=== PATIENT | female | born 1945 | race Caucasian/White ===

== ENCOUNTER 2019-03-08 12:24 | Inpatient (IN) | payer OTHER ==
[~2019-03-08] VITALS: Ht 167.6 cm; Wt 73.6 kg
--- NOTE | ~2019-03-08 | HC ---
[facility] [place] [address] CONSULTATION Name: ADALBERTO MIRANDA Room #: 212-P [facility] IN ..#: [id number] Admission: 03/08/19 ������������������ Attend Phys: Phoenix Tejeda MD Discharge: ������������������ Date of : 43 Report #: [id number] THIS REPORT FOR: //name// CC: Phoenix Viera HISTORY OF PRESENT ILLNESS: The patient is a 73-year-old woman with a history of coronary artery disease with remote 4-vessel bypass (2010). This was with a left internal mammary to the LAD, sequential vein graft to the diagonal, marginal branches and a vein graft to the distal right coronary. She has had chest pain ever since her bypass. Her last intervention was in 10/2014 when coronary angiography demonstrated an atretic, occluded HOWARD to the LAD and patent vein grafts. She underwent stenting of the mid LAD with a 2.75 x 33 mm Xience stent. She continued to have pain postprocedure and uses nitroglycerin periodically. Yesterday around 11:00, she developed epigastric pain. She ended up taking three nitroglycerin tablets and Xanax. Paramedics were summoned and her pain persisted shortly after their arrival. EKGs in the field demonstrated no acute ST or T-wave changes. Follow up EKG upon arrival here similarly demonstrated sinus rhythm with right bundle branch block without acute ST or T-wave changes. Serial cardiac enzymes have been normal. She has had no recurrent pain since. She continues to smoke about a package and a half of cigarettes a day. No orthopnea or paroxysmal nocturnal dyspnea. No history of near syncope or syncope. ALLERGIES: She is allergic to IODINATED CONTRAST, WELLBUTRIN AND BEE STINGS. MEDICATIONS: Include metoprolol ER 100 mg daily, atorvastatin 40 mg daily, Plavix 75 mg daily, irbesartan 300 mg daily and chlorthalidone 25 mg 4 times a week. PAST MEDICAL HISTORY: Medical records have been reviewed and include a history of cervical spine surgery, hysterectomy, appendectomy, cholecystectomy and four-vessel bypass in 2010. SOCIAL HISTORY: She is an ongoing smoker, single and retired. FAMILY HISTORY: Notable for premature coronary artery disease. REVIEW OF SYSTEMS: All systems negative except as that noted above. PHYSICAL EXAMINATION: GENERAL: This is a pleasant woman in no distress. VITAL SIGNS: Blood pressure is 137/80, heart rate of 60 and regular. She is afebrile, 5 feet 6 inches tall and 165 pounds. HEENT: There are neither xanthelasma, subcutaneous xanthomata, oral mucosal or digital cyanosis or kyphoscoliosis present. [facility] [address] [place] [address] CONSULTATION Name: ADALBERTO MIRANDA Room #: 212-P [facility] IN ..#: [id number] Admission: 03/08/19 ������������������ Attend Phys: Phoenix Tejeda MD Discharge: ������������������ Date of : 43 Report #: [id number] CHEST: Clear to auscultation and percussion. CARDIAC: Regular rate and rhythm with normal S1, S2. No murmurs or rubs. ABDOMEN: Soft and nontender. EXTREMITIES: Without cyanosis, clubbing or edema. Radial pulses are 2+. NEUROLOGIC: She is alert with a nonfocal exam. LABORATORY DATA: Sodium 130, potassium 3.6 and creatinine 0.9. Serial troponin levels are 0. White count 4.2, hemoglobin 12, hematocrit 34 and platelet count 352. Chest x-ray, no acute abnormalities. EKG is detailed above. IMPRESSION: 1. Chest pain with mixed features for angina. 2. Coronary artery disease with remote bypass surgery. 3. Hypertension. 4. Dyslipidemia. 5. Chronic obstructive pulmonary disease with ongoing tobacco dependency. 6. Anxiety disorder. RECOMMENDATIONS: 1. Pharmacologic stress testing. 2. Continued efforts towards aggressive risk factor modification. 3. Smoking cessation counselling performed. ��������������������������������������������� ���������������������������������������� By: ��������������������������������������������� 0755 0819 Cedric Haley MD, [facility] /nt
[~2019-03-08 12:24] MED LIST: ADULT LOW DOSE81 MG PO; ALDACTONE25 MG PO; AMBIEN 10 MG TA10 MG PO; AMBIEN 5 MG TABL5 M1 PO; ASPIR 8181 M1 PO; ASPIRIN EC81 M1 PO; ASPIRIN325 PO; ATORVASTATIN CA40 MG PO; AZITHROMYCIN 2250 MG PO; BLACK COHOSH160 MG PO; CALCIUM PO; CHANTIX1 MG PO; CYCLOBENZAPRINE PO; DAILY VALUE1 EACH PO; DIPHENHIST50 MG PO; DULCOLAX STOOL100 MG PO; EFFIENT10 MG PO; FERREX 150150 MG PO; FISHOIL PO; HCTZ PO; IMDUR 60 MG TAB60 MG PO; KLOR-CON 10 ER10 MEQ PO; LASIX 40 MG TAB40 MG PO; LEXAPRO 10 MG T10 MG PO; LISINOPRIL10 MG PO; LORTAB 5 MG/5001 TA1 PO; LORTAB 7.5/5001 TA3 PO; LUTEIN6 M1 PO; LUTEIN6 MG; MAALOX ADVANCE355 M1 PO; MOBIC15 MG PO; MULTIVITAMINS PO; MYLANTA GELCAP1 EACH PO; MYLANTA PO; NITROGLYCERIN0.4 MG SUBLING; NORVASC5 MG PO; PERCOCET 5-3251 EACH PO; PLAVIX 75 MG TA75 M1 PO; PLAVIX 75 MG TA75 MG PO; PREMARIN PO; PREMARIN0.625 MG PO; PROAIR HFA8.5 GM IH; PROVENTIL; SENOKOT-S1 TA1 PO; SIMVASTATIN PO; SKELAXIN 800 M800 M1 PO; TIZANIDINE HCL4 M1 PO; TOPROL XL100 MG PO; TOPROL XL25 MG PO; TUMS PO; VITAMIN B PO; VITAMIN E 400I400 I1 PO; XANAX 0.25 MG0.25 MG PO; XANAX 0.5 MG0.5 MG PO; ZANAFLEX4 MG PO; ZESTRIL2.5 MG PO; ZESTRIL20 MG PO; ZOCOR40 MG PO
[2019-03-08 12:28] VITALS: BP 140/76
[2019-03-08 12:59] LABS: ABSOLUTE NEUTROPHILS 1.7 thou/uL (1.4-8.2); BASOPHILS 2.3 % (0.0-2.0); EOSINOPHILS 18.2 % (0.0-3.0); HEMATOCRIT 34.3 % (37.0-47.0); LYMPHOCYTES 26.8 % (24.0-44.0); MCH 34.4 pg (26.0-34.0); MCV 98.2 fL (80.0-100.0); MONOCYTES 11.1 % (1.0-8.0); PLATELET COUNT 352 thou/uL (150-400); POLYS 41.6 % (36.0-66.0); RBC 3.49 mil/uL (4.20-5.00); WBC 4.2 thou/uL (4.0-11.0)
[2019-03-08 13:07] LABS: ANION GAP 11 mmol/L (7-16); BUN 12 mg/dL (7-18); CALCIUM 8.8 mg/dL (8.5-10.1); CHLORIDE 93 mmol/L (98-107); CO2 24 mmol/L (21-32); CREATININE 1.1 mg/dL (0.6-1.0); GLUCOSE 112 mg/dL (74-106); POTASSIUM 3.7 mmol/L (3.5-5.1); SODIUM 128 mmol/L (136-145)
[2019-03-08 13:17] LABS: ALBUMIN 3.6 g/dL (3.4-5.0); LIPASE 141 U/L (73-393); SGOT 28 U/L (15-37); SGPT 27 U/L (30-65); TOTAL BILIRUBIN 0.3 mg/dL (<0.1-1.0); TOTAL PROTEIN 6.8 g/dL (6.4-8.2); TROPONIN-I <0.06 ng/mL (<0.06)
[2019-03-08] MEDS ORDERED: CHLORTHALIDONE25 MG PO (13:44)
[2019-03-08] MEDS ORDERED: AVAPRO300 MG PO (13:45)
[2019-03-08 14:38] VITALS: BP 133/72
[2019-03-08 15:15] VITALS: BP 148/89
[2019-03-08 17:00] VITALS: BP 136/85
[2019-03-08 19:55] VITALS: BP 121/81
[2019-03-09 03:26] LABS: ANION GAP 10 mmol/L (7-16); BUN 15 mg/dL (7-18); CALCIUM 8.5 mg/dL (8.5-10.1); CHLORIDE 95 mmol/L (98-107); CO2 25 mmol/L (21-32); CREATININE 0.9 mg/dL (0.6-1.0); GLUCOSE 90 mg/dL (74-106); POTASSIUM 3.6 mmol/L (3.5-5.1); SODIUM 130 mmol/L (136-145); TROPONIN-I <0.06 ng/mL (<0.06)
[2019-03-09 05:39] VITALS: BP 114/70
[2019-03-09 07:26] VITALS: BP 137/80
--- NOTE | 2019-03-09 09:18 | EKG ---
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: Ruperto Gomez : 1945 Requested By: Rebecca Fonseca Order Number: [id number] MD: Cedric Haley Measurements Intervals [place] Rate: 57 P: 73 MD: 125 QRS: -18 QRSD: 149 T: 27 QT: 467 QTc: 455 Interpretive Statements Sinus rhythm Right bundle branch block Compared to ECG 09/09/2016 09:11:33 No significant change was found Electronically Signed On 03-09-2019 9:17:57 CDT by Cedric Haley [email or web address] ��������������������������������������������� <ELECTRONICALLY SIGNED> ���������������������������������������� By: Cedric Haley MD, [facility] ��������������������������������������������� 03/09/19916 1226 1226 Cedric Haley MD, [facility] /EPI
[2019-03-09 15:41] VITALS: BP 111/85
[2019-03-10] VITALS (8 sets, daily range): BP systolic 111–151; BP diastolic 73–111
--- NOTE | 2019-03-10 08:43 | CATHLAB ---
[facility] [place] [address] INVASIVE PROCEDURE REPORT Name: ADALBERTO MIRANDA Room #: 212-P [facility] IN [facility]#: [id number] ������������� Admission: 03/08/19 ������������� Attend Phys: Phoenix Tejeda MD Discharge: ��� ������������� ��� Date of : 43 Date of Service: 03/10/19 0842 �� Report #: [id number] �������� ��������������������������������������������[id number] THIS REPORT FOR: //name// APPROVED REPORT Study performed: 03/10/2019 07:14:17 Patient Details The patient is a 73 year-old female Event Personnel Cedric Haley Air Conditioning Installer Supervisor, Mayte Koehler Jackson, Valisa Monitor, John Rea RN city controller Performed Left Heart Cath Coronaries, Bypass Grafts [id number] CCORCABG Indication Chest pain Procedure Narrative The Right Groin^ was infiltrated with 1% Lidocaine subcutaneous anesthesia. A PINNACLE 6FR Sheath #[id number] sheath was inserted into the RFA^. Coronary angiography was performed using coronary diagnostic catheters. The right coronary system was accessed and visualized with a RCB catheter. The left coronary system was accessed and visualized with a JL4 catheter. The left ventricle was accessed and visualized with a PIGTAIL catheter. Left ventricular/Aortic Valve gradient assessed via catheter pullback. Left ventriculogram was performed in FRANKS projection. Closure device was deployed with a Fr MYNXGRIP 6/7F #[id number]. The patient tolerated the procedure well and there were no complications associated with the procedure. There was no hematoma. Intraoperative Conscious Sedation Sedation start time: 722 Case end Time: 752 Fentanyl 100 mcg Versed 2 mg Fluoro Time: 3.39 minutes Dose: DAP 4368.00 cGycm2 568 mGy Contrast Type and Amount: Omnipaque 125 ml Coronary Angiography [facility] [address] [place] [address] INVASIVE PROCEDURE REPORT Name: ADALBERTO MIRANDA Room #: 212-P [facility] IN [facility]#: [id number] ������������� Admission: 03/08/19 ������������� Attend Phys: Phoenix Tejeda MD Discharge: ��� ������������� ��� Date of : 43 Date of Service: 03/10/19 0842 �� Report #: [id number] �������� ��������������������������������������������[id number] The patient's coronary anatomy is right dominant. Diagnostic Cath Left Main Normal left main LAD Widely patent proximal to mid LAD stent. Atretic HOWARD to LAD Diagonal 1 Small first diagonal without significant disease OM1 Occluded OM1 OM2 65-70% OM branch stenosis beyond a proximal OM 2 stent Widely patent sequential SVG to OM1l branch with jump sequence to OM2 Right Coronary 100% mid right coronary occlusion Widely patent SVG from aorta to distal RCA. R PDA Normal PDA RPLV Normal, small posterolateral branch Left Ventriculography The left ventricle is normal in size with normal contractility. The left ventricular ejection fraction is estimated to be 60-65%. Left ventricular wall motion abnormalities are not present. There is no mitral insufficiency. Hemodynamics The aortic pressure is 152/61 mmHg with a mean of 94 mmHg. The left ventricular pressure is 139/1 mmHg with a mean of mmHg. The left ventricular end diastolic pressure is 25 mmHg. Conclusion 1. Normal global and regional systolic function. EF 65% 2. Severe CAD 3. Atretic HOWARD to LAD, although widely patent proximal to mid LAD stent 4. Severe OM1 and OM2 branch disease with patent sequential SVG to OM1 then OM2 5. Occluded bad river band RCA. Widely patent SVG to distal RCA Recommendations Smoking Cessation Aggressive Medical Therapy ��������������������������������������������� <ELECTRONICALLY SIGNED> ���������������������������������������� By: Cedric Haley MD, FACC ��������������������������������������������� [birth year]/1942 1 1 Cedric Haley MD, FACC /INF
[2019-03-10] MEDS ORDERED: CLOPIDOGREL75 MG PO (11:43)
--- NOTE | 2019-03-11 07:39 | EKG ---
[address] [address] ELECTROCARDIOGRAM REPORT Name: ADALBERTO MIRANDA Room #: 212-[facility] IN M.R.#: [id number] ������������������ Admission: 03/08/19 ������������������ Attend Phys: Phoenix Tejeda MD Discharge: 03/10/19 ������������������ Date of : 43 Report #: [id number] ����������������������������������������������������������������� [id number] THIS REPORT FOR: //name// [facility] Test Date: 2019-03-09 Test Time: 18:33:37 Pat Name: ADALBERTO MIRANDA Department: Room: 212 Gender: F Towboat Pilot: Guerda MERIDA : 1945 Requested By: Cedric Haley Order Number: [id number] MD: Cedric Haley Measurements Intervals [place] Rate: 54 P: -2 KS: 163 QRS: -34 QRSD: 179 T: -14 QT: 480 QTc: 455 Interpretive Statements Sinus bradycardia Right bundle branch block Compared to ECG 03/08/2019 12:26:01 No significant changes Electronically Signed On 03-11-2019 7:39:42 CDT by Cedric Haley [email or web address] ��������������������������������������������� <ELECTRONICALLY SIGNED> ���������������������������������������� By: Cedric Haley MD, [facility] ��������������������������������������������� 03/11/19 0739 1833 183 Cedric Haley MD, [facility] /EPI
== END 2019-03-10 16:30 | disposition home or self-care (01) | DRG 287 ==
LOC: ER 12:24 → EROBS 13:31 → 2N 13:31
PROVIDERS: Nurse Practitioner Family; ADMIT Hospitalist
PROC: B2111ZZ Fluoroscopy of Multiple Coronary Arteries using Low Osmolar Contrast (ICD-10-PCS; principal; 2019-03-10)
PROC: B2121ZZ Fluoroscopy of Single Coronary Artery Bypass Graft using Low Osmolar Contrast (ICD-10-PCS; principal; 2019-03-10)
PROC: 4A023N7 Measurement of Cardiac Sampling and Pressure, Left Heart, Percutaneous Approach (ICD-10-PCS; principal; 2019-03-10)
PROC: B2151ZZ Fluoroscopy of Left Heart using Low Osmolar Contrast (ICD-10-PCS; principal; 2019-03-10)
DX: I25.110 Atherosclerotic heart disease of native coronary artery with unstable angina pectoris (principal); E87.1 Hypo-osmolality and hyponatremia; I10 Essential (primary) hypertension; E78.5 Hyperlipidemia, unspecified; F17.210 Nicotine dependence, cigarettes, uncomplicated; I45.10 Unspecified right bundle-branch block; J44.9 Chronic obstructive pulmonary disease, unspecified; F41.9 Anxiety disorder, unspecified; Z60.2 Problems related to living alone; G47.00 Insomnia, unspecified; K44.9 Diaphragmatic hernia without obstruction or gangrene; I25.2 Old myocardial infarction; Z95.1 Presence of aortocoronary bypass graft; Z82.49 Family history of ischemic heart disease and other diseases of the circulatory system; Z79.02 Long term (current) use of antithrombotics/antiplatelets; Z90.710 Acquired absence of both cervix and uterus; Z90.49 Acquired absence of other specified parts of digestive tract; Z95.5 Presence of coronary angioplasty implant and graft; Z84.89 Family history of other specified conditions; Z79.899 Other long term (current) drug therapy; Z79.82 Long term (current) use of aspirin; Z88.8 Allergy status to other drugs, medicaments and biological substances; Z91.030 Bee allergy status; Z91.041 Radiographic dye allergy status; Z71.6 Tobacco abuse counseling
CPT/HCPCS: 10081

== ENCOUNTER → 2020-02-26 | Outpatient (CLI) | payer OTHER ==
[~2020-02-26] MED LIST changes: +AVAPRO300 MG PO; +CHLORTHALIDONE25 MG PO; +CLOPIDOGREL75 MG PO
== END ==
LOC: SJCVCIMAG 12-10 11:05
PROVIDERS: ATTEND Internal Medicine
DX: I08.8 Other rheumatic multiple valve diseases (principal); I65.23 Occlusion and stenosis of bilateral carotid arteries; R00.1 Bradycardia, unspecified; I45.10 Unspecified right bundle-branch block; I11.9 Hypertensive heart disease without heart failure; I71.4 Abdominal aortic aneurysm, without rupture; R94.31 Abnormal electrocardiogram [ECG] [EKG]; I25.709 Atherosclerosis of coronary artery bypass graft(s), unspecified, with unspecified angina pectoris; E78.5 Hyperlipidemia, unspecified; J43.1 Panlobular emphysema; F17.210 Nicotine dependence, cigarettes, uncomplicated; Z95.1 Presence of aortocoronary bypass graft; Z82.49 Family history of ischemic heart disease and other diseases of the circulatory system; Z79.82 Long term (current) use of aspirin; Z79.899 Other long term (current) drug therapy

== ENCOUNTER 2020-04-06 18:57 | Emergency (ER) | payer OTHER ==
[~2020-04-06] VITALS: Ht 167.6 cm; Wt 77.1 kg
[2020-04-06 19:56] LABS: HEMATOCRIT 34.8 % (37.0-47.0); MCH 35.7 pg (26.0-34.0); MCHC 34.6 g/dL (28.0-37.0); MCV 103.4 fL (80.0-100.0); PLATELET COUNT 357 thou/uL (150-400); RBC 3.36 mil/uL (4.20-5.00); RDW 13.8 % (10.5-14.5); WBC 4.5 thou/uL (4.0-11.0)
[2020-04-06 19:59] LABS: ANION GAP 10 mmol/L (7-16); BUN 14 mg/dL (7-18); CALCIUM 10.5 mg/dL (8.5-10.1); CHLORIDE 90 mmol/L (98-107); CO2 26 mmol/L (21-32); CREATININE 1.2 mg/dL (0.6-1.0); GLUCOSE 107 mg/dL (74-106); POTASSIUM 3.6 mmol/L (3.5-5.1); SODIUM 126 mmol/L (136-145)
[2020-04-06 20:08] LABS: ALBUMIN 4.1 g/dL (3.4-5.0); SGOT 34 U/L (15-37); SGPT 25 U/L (30-65); TOTAL BILIRUBIN 0.4 mg/dL (0.2-1.0); TOTAL PROTEIN 7.3 g/dL (6.4-8.2); TROPONIN-I <0.06 ng/mL (<0.06)
[2020-04-06 20:59] LABS: ABSOLUTE NEUTROPHILS 2.6 thou/uL (1.4-8.2)
[2020-04-06 21:00] LABS: ANISOCYTOSIS 1+; POLYCHROMASIA OCCASIONAL
[2020-04-06 21:42] VITALS: BP 162/72
--- NOTE | 2020-04-07 08:08 | EKG ---
[facility] [place] [address] ELECTROCARDIOGRAM REPORT Name: ADALBERTO MIRANDA [id number] Admission: 04/06/20 Attend Phys: Discharge: 04/06/20 Date of : 43 Report #: [id number] THIS REPORT FOR: cc: Bertha Viera MD, Michelle R. 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: : 1945 Requested By: Prince Mayer Order Number: [id number] MD: Cedric Haley Measurements Intervals [place] Rate: 62 P: 34 SC: 130 QRS: -41 QRSD: 154 T: 10 QT: 466 QTc: 474 Interpretive Statements Sinus rhythm RBBB and LAFB LVH with secondary repolarization abnormality Compared to ECG 03/09/2019 18:33:37 Sinus bradycardia no longer present ST segment abnormality less pronounced Electronically Signed On 04-07-2020 8:08:01 CDT by Cedric Haley [email or web address] <ELECTRONICALLY SIGNED> By: Cedric Haley MD, [facility] 04/07/20807 57 57 Cerdic Haley MD, [facility] /EPI
== END 2020-04-06 21:45 | disposition home or self-care (01) ==
LOC: ER 18:57
PROVIDERS: Emergency Medicine
DX: S09.90XA Unspecified injury of head, initial encounter (principal); R07.89 Other chest pain; F17.210 Nicotine dependence, cigarettes, uncomplicated; Z90.710 Acquired absence of both cervix and uterus; Z90.49 Acquired absence of other specified parts of digestive tract; Z79.01 Long term (current) use of anticoagulants; Z79.82 Long term (current) use of aspirin; Z79.899 Other long term (current) drug therapy; Z88.8 Allergy status to other drugs, medicaments and biological substances; Z91.041 Radiographic dye allergy status; Z91.030 Bee allergy status; W18.39XA Other fall on same level, initial encounter; Y93.89 Activity, other specified; Y92.89 Other specified places as the place of occurrence of the external cause; Y99.8 Other external cause status

== ENCOUNTER → 2020-08-30 | Outpatient (CLI) | payer OTHER | LOC: SJCVC 10:22 | PROVIDERS: ATTEND Internal Medicine | DX: R94.31 Abnormal electrocardiogram [ECG] [EKG] (principal); R00.1 Bradycardia, unspecified; I45.10 Unspecified right bundle-branch block; I25.119 Atherosclerotic heart disease of native coronary artery with unspecified angina pectoris; E78.5 Hyperlipidemia, unspecified; I71.4 Abdominal aortic aneurysm, without rupture; I10 Essential (primary) hypertension; J43.1 Panlobular emphysema; I73.9 Peripheral vascular disease, unspecified; I65.23 Occlusion and stenosis of bilateral carotid arteries; F17.210 Nicotine dependence, cigarettes, uncomplicated; Z79.82 Long term (current) use of aspirin; Z79.899 Other long term (current) drug therapy ==

== ENCOUNTER 2020-11-13 11:53 | Emergency (ER) | payer OTHER ==
[~2020-11-13] VITALS: Ht 167.6 cm; Wt 72.6 kg
[2020-11-13 12:42] LABS: URINE BILIRUBIN NEGATIVE (Negative); URINE BLOOD NEGATIVE (Negative); URINE CLARITY CLEAR; URINE COLOR YELLOW; URINE GLUCOSE-RANDOM* NEGATIVE (Negative); URINE KETONES NEGATIVE (Negative); URINE LEUKOCYTES-REFLEX TRACE (Negative); URINE PROTEIN (DIPSTICK) NEGATIVE (Negative); URINE SPECIFIC GRAVITY 1.015 (1.005-1.035); URINE UROBILINOGEN 0.2 E.U./dl (0.2-1.0)
[2020-11-13 12:43] LABS: URINE NITRITE-REFLEX POSITIVE (Negative)
[2020-11-13 12:53] LABS: HEMATOCRIT 31.6 % (37.0-47.0); HEMOGLOBIN 10.8 gm/dL (12.0-15.0); MCHC 34.1 g/dL (28.0-37.0); MCV 99.8 fL (80.0-100.0); RBC 3.17 mil/uL (4.20-5.00); RDW 14.1 % (10.5-14.5); WBC 5.1 thou/uL (4.0-11.0)
[2020-11-13 12:54] LABS: CASTS None Seen /LPF (None Seen); SQUAMOUS 4-10 Moderate /LPF (0-3)
[2020-11-13 12:55] LABS: URINE RBC 0-2 Rare /HPF (0-2); URINE WBC-REFLEX 0-5 Rare /HPF (0-5)
[2020-11-13 12:56] LABS: BACTERIA-REFLEX 1-9 Few /HPF (None Seen); CRYSTALS None Seen /LPF (None Seen)
[2020-11-13 13:12] LABS: CALCIUM 9.1 mg/dL (8.5-10.1); CREATININE 1.5 mg/dL (0.6-1.0); POTASSIUM 3.7 mmol/L (3.5-5.1)
[2020-11-13 13:18] LABS: ALBUMIN 4.2 g/dL (3.4-5.0); TOTAL BILIRUBIN 0.5 mg/dL (0.2-1.0); TOTAL PROTEIN 7.3 g/dL (6.4-8.2)
[2020-11-13 14:40] VITALS: BP 112/53
--- NOTE | 2020-11-15 07:19 | EKG ---
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 : 1945 Requested By: Delia Bartlett Order Number: [id number] MD: Loi Leyva Measurements Intervals [place] Rate: 55 P: 0 MN: 151 QRS: -33 QRSD: 160 T: -12 QT: 501 QTc: 480 Interpretive Statements Sinus rhythm Right bundle branch block LVH with secondary repolarization abnormality Compared to ECG 04/06/2020 19:58:55 Left anterior fascicular block no longer present Electronically Signed On 11-15-2020 7:18:50 BONE TENDER by Loi Leyva [email or web address] <ELECTRONICALLY SIGNED> By: Loi Leyva MD, [facility] 11/15/2018 1352 1352 Loi Leyva MD, FACC /EPI
== END 2020-11-13 14:15 | disposition home or self-care (01) ==
LOC: ER 11:53
PROVIDERS: Nurse Practitioner Family
DX: R10.9 Unspecified abdominal pain (principal); R91.8 Other nonspecific abnormal finding of lung field; F17.210 Nicotine dependence, cigarettes, uncomplicated; Z90.710 Acquired absence of both cervix and uterus; Z79.82 Long term (current) use of aspirin; Z79.899 Other long term (current) drug therapy; Z88.8 Allergy status to other drugs, medicaments and biological substances; Z91.030 Bee allergy status; Z91.041 Radiographic dye allergy status; Z91.048 Other nonmedicinal substance allergy status

== ENCOUNTER → 2021-02-17 | Outpatient (CLI) | payer OTHER | LOC: SJCVCIMAG 07:46 | PROVIDERS: ATTEND Internal Medicine | DX: I65.23 Occlusion and stenosis of bilateral carotid arteries (principal); I71.4 Abdominal aortic aneurysm, without rupture; I70.8 Atherosclerosis of other arteries; R94.31 Abnormal electrocardiogram [ECG] [EKG]; I45.10 Unspecified right bundle-branch block; I49.9 Cardiac arrhythmia, unspecified; I25.119 Atherosclerotic heart disease of native coronary artery with unspecified angina pectoris; E78.5 Hyperlipidemia, unspecified; I10 Essential (primary) hypertension; J43.1 Panlobular emphysema; F17.210 Nicotine dependence, cigarettes, uncomplicated; Z95.1 Presence of aortocoronary bypass graft; Z90.710 Acquired absence of both cervix and uterus; Z88.8 Allergy status to other drugs, medicaments and biological substances; Z79.82 Long term (current) use of aspirin; Z79.899 Other long term (current) drug therapy; Z82.49 Family history of ischemic heart disease and other diseases of the circulatory system ==

== ENCOUNTER → 2021-07-03 | Outpatient (CLI) | payer OTHER ==
[~2021-07-03] MED LIST changes: +LOW DOSE ASPIRI81 M1 PO; +MULTI VITAMIN1 EACH PO; +PROTOPIC OINTME30 GM TOP; +TOPROL XL50 MG; +TRIAMCINOLONE A80 GM TOP
== END ==
LOC: LAB 12:34
PROVIDERS: Student in an Organized Health Care Education/Training Program; ATTEND Specialist
DX: Z01.812 Encounter for preprocedural laboratory examination (principal); Z20.822 Contact with and (suspected) exposure to COVID-19

== ENCOUNTER → 2021-07-05 | Outpatient (CLI) | payer OTHER ==
[~2021-07-05] VITALS: Ht 167.6 cm; Wt 80.7 kg
--- NOTE | 2021-07-07 08:20 | P ---
[facility] [place] [address] PROCEDURE REPORT Name: ADALBERTO MIRANDA Room #: REG TIMOTEOTasha Redd#: [id number] Admission: 07/05/21 Attend Phys: Akira Kramer Discharge: Date of : 43 Report #: [id number] THIS REPORT FOR: cc: Bertha Viera MD,Akira Bustos MD, MD ~ cc: Bertha Viera MD DATE OF SERVICE: 07/05/2021 PROCEDURE PERFORMED: Colonoscopy with biopsies. HISTORY OF PRESENT ILLNESS: The patient is a 76-year-old female with a history of colon polyps, here for routine 5-year followup. Denies any symptoms. She does have a family history of colon cancer in 2 grandparents. DESCRIPTION OF PROCEDURE: The risks and benefits of the procedure were explained to the patient, those risks including but not limited to bleeding, perforation and the risk of sedation. She understood these risks and gave informed consent. Sedation was given using propofol per anesthesia. Next, a digital rectal exam was initially performed, which was normal. Next, using a standard Olympus colonoscope, the scope was placed in the patient's anus and advanced under direct vision to the cecum. The overall prep was excellent. The cecum and ileocecal valve were normal in appearance. In the ascending colon, two 3-4 mm sessile polyps were noted, both removed with cold forceps, otherwise normal. The transverse and descending colon were normal. A few small scattered diverticula were noted in the sigmoid colon. No evidence of inflammation. Two 3-4 mm sessile polyps also noted in the sigmoid colon, both removed with cold forceps. In the rectum, a 4 mm sessile polyp was noted, also removed with cold forceps. On retroflexion, small to medium size internal hemorrhoids, nonbleeding were noted. The scope was then withdrawn and the procedure terminated. The patient tolerated the procedure well. IMPRESSION: 1. Small colonic polyps as described above. 2. Sigmoid diverticulosis. 3. Internal hemorrhoids. 4. Otherwise, normal colonoscopy. RECOMMENDATIONS: 1. Await biopsy results. 2. Repeat colonoscopy in [address] [address] PROCEDURE REPORT Name: ADALBERTO MIRANDA Room #: REG [facility].#: [id number] Admission: 07/05/21 Attend Phys: Akira Kramer Discharge: Date of : 43 Report #: [id number] Thank you for allowing me to participate in her care. <ELECTRONICALLY SIGNED> By: Akira Youssef MD 07/07/2120 0756 0803 Akira Youssef MD /nt
--- NOTE | 2021-07-07 11:08 | PATH ---
[facility] [place] [address] PATHOLOGY RPT PROCEDURE Name: HUYEN MIRANDA Room #: REG [facility] M.R.#: [id number] Admission: 07/05/21 Date of : 43 Discharge: Report #: [id number] Path Case #: [id number] [facility] Accession Number: [id number] . 01 Material submitted: . PART A: colon - ASCENDING COLON POLYP X2. Modifiers: ascending, X2 PART B: sigmoid colon - SIGMOID COLON POLYP X2. Modifiers: X2 PART C: rectum - RECTAL POLYP . 01 Clinical history: . COLONOSCOPY HX OF POLYPS COLON POLYPS, DIVERTICULOSIS, INTERNAL HEMORRHOIDS . 02 Diagnosis: A. Polyp x2, ascending colon polyp, endoscopic biopsy: - Multiple fragments showing tubular adenoma without high grade dysplasia. - Additional fragments of hyperplastic polyp without dysplasia. . B. Polyp x2, sigmoid colon polyp, endoscopic biopsy: - Hyperplastic polyp identified within all fragments examined. - Negative for dysplasia. . C. Polyp, rectal polyp, endoscopic biopsy: - Hyperplastic polyp identified within all fragments examined. - Negative for dysplasia. . (IUV:mml; 07/06/2021) QLM 07/06/2021 1321 Local . 02 Electronically signed: . Yesica Stubbs MD, Pathologist NPI- [id number] . 01 Gross description: . A. The specimen is submitted in formalin, labeled "Bille, Huyen, ascending colon polyp". Received are multiple segments of pale coleman tissue ranging in size from 0.2 to 0.3 cm in maximum dimensions. The specimen is submitted entirely in cassette A1. . B. The specimen is submitted in formalin, labeled "Hiltone, Huyen, sigmoid colon polyp". Received are 2 segments of pale coleman tissue ranging in size from 0.2 to 0.4 cm in maximum dimensions. The specimen is submitted entirely in cassette B1. . C. The specimen is submitted in formalin, labeled "Bille, Huyen, rectal polyp". Received are 4 segments of pale coleman tissue ranging in size from [address] [address] PATHOLOGY RPT PROCEDURE Name: HUYEN MIRANDA ALBERTO Room #: REG [facility] M..#: [id number] Admission: 07/05/21 Date of : 43 Discharge: Report #: [id number] Path Case #: [id number] 0.2 to 0.3 cm in maximum dimensions. The specimen is submitted entirely in cassette C1. ([facility]; 07/05/2021) NRI/NRI 07/05/20212030 Local . 02 Pathologist provided ICD-10: D12.2, K63.5, K62.1 . 02 CPT . 637343, 173967, 744723 Specimen Comment: A courtesy copy of this report has been sent to [phone], [phone] Specimen Comment: [id number] Specimen Comment: Report sent to / DR Guerda SAEZ Specimen Comment: A duplicate report has been generated due to demographic updates. Performed at: [address] [facility], [place] [id number] MD Dave Mello MD Phone: [phone] Performed at: [address] [facility] [id number] MD Yesica Stubbs MD Phone: [phone]
== END | disposition home or self-care (01) ==
LOC: GI
PROVIDERS: ATTEND Specialist
DX: Z12.11 Encounter for screening for malignant neoplasm of colon (principal); Z86.010 Personal history of colon polyps; Z80.0 Family history of malignant neoplasm of digestive organs; D12.2 Benign neoplasm of ascending colon; K62.1 Rectal polyp; K57.30 Diverticulosis of large intestine without perforation or abscess without bleeding; K64.8 Other hemorrhoids; I10 Essential (primary) hypertension; E78.5 Hyperlipidemia, unspecified; F32.9 Major depressive disorder, single episode, unspecified; F41.9 Anxiety disorder, unspecified; F17.210 Nicotine dependence, cigarettes, uncomplicated; I25.2 Old myocardial infarction; Z98.890 Other specified postprocedural states; Z79.899 Other long term (current) drug therapy; Z90.49 Acquired absence of other specified parts of digestive tract; Z90.710 Acquired absence of both cervix and uterus; Z85.828 Personal history of other malignant neoplasm of skin; Z95.1 Presence of aortocoronary bypass graft; Z88.8 Allergy status to other drugs, medicaments and biological substances; Z91.041 Radiographic dye allergy status
CPT/HCPCS: 62110; 62900

== ENCOUNTER → 2021-08-25 | Outpatient (CLI) | payer OTHER | LOC: SJCVC 13:19 | PROVIDERS: ATTEND Internal Medicine | DX: R94.31 Abnormal electrocardiogram [ECG] [EKG] (principal); I45.10 Unspecified right bundle-branch block; R00.1 Bradycardia, unspecified; I25.119 Atherosclerotic heart disease of native coronary artery with unspecified angina pectoris; I71.4 Abdominal aortic aneurysm, without rupture; I12.9 Hypertensive chronic kidney disease with stage 1 through stage 4 chronic kidney disease, or unspecified chronic kidney disease; N18.31 Chronic kidney disease, stage 3a; E78.5 Hyperlipidemia, unspecified; I65.23 Occlusion and stenosis of bilateral carotid arteries; J43.1 Panlobular emphysema; F17.210 Nicotine dependence, cigarettes, uncomplicated; Z88.8 Allergy status to other drugs, medicaments and biological substances; Z79.82 Long term (current) use of aspirin; Z79.899 Other long term (current) drug therapy ==